=== PATIENT | male | born 1990 | race Caucasian/White ===

== ENCOUNTER → 2023-01-16 | Outpatient (CLI) | payer MEDICAID ==
[2023-01-16 11:28] LABS: T4, Free (Free Thyroxine) 1.45 ng/dL (0.80-1.80)
== END | disposition home or self-care (01) ==
LOC: LABMAIN 06:30
PROVIDERS: ATTEND Internal Medicine Medical Oncology
DX: C77.9 Secondary and unspecified malignant neoplasm of lymph node, unspecified (principal)
CPT/HCPCS: 84439; 84443; 84481

== ENCOUNTER → 2023-02-01 | Outpatient (CLI) | payer MEDICAID ==
--- NOTE | 2023-02-01 11:28 | XR ---
EXAMINATION TYPE: XR chest 2V DATE OF EXAM: 02/01/2023 9:57 AM COMPARISON: Chest radiographs from 08/23/2022 TECHNIQUE: XR chest 2V Frontal and lateral views of the chest. CLINICAL INDICATION:Male, 32 years old with history of R50.9; FINDINGS: Lungs/Pleura: There is no evidence of pleural effusion, focal consolidation, or pneumothorax. Pulmonary vascularity: Unremarkable. Heart/mediastinum: Cardiomediastinal silhouette is unremarkable. Musculoskeletal: No acute osseous pathology. IMPRESSION: No acute cardiopulmonary disease/process.
== END | disposition home or self-care (01) ==
LOC: RADXRMAIN 09:46
PROVIDERS: ATTEND Family Medicine
DX: R50.9 Fever, unspecified (principal)
CPT/HCPCS: 71046

== ENCOUNTER → 2023-02-01 | Outpatient (CLI) | payer MEDICAID | END | disposition home or self-care (01) | LOC: LABMAIN 09:25 | PROVIDERS: ATTEND Family Medicine | DX: R50.9 Fever, unspecified (principal) | CPT/HCPCS: 87040; 87086 ==